=== PATIENT | male | born 1960 | race Caucasian/White ===

== ENCOUNTER 2023-11-20 11:20 | Day surgery (SDC) | payer BC ==
[2023-11-20 11:56] VITALS: RESP 16; TEMP 97.7
[2023-11-20] MEDS: LACTATED RINGERS 1,000 ML IV ONE (12:06)
[2023-11-20] MEDS ORDERED: PROPOFOL 10 MG/ML 20 ML VIAL IV ONE (12:10)
[2023-11-20] MEDS ORDERED: LIDOCAINE 1% (10MG/ML) FOR IV START INTRADERMA PRN (12:29)
[2023-11-20] MEDS ORDERED: LACTATED RINGERS 1,000 ML IV SCH (12:29)
[2023-11-20 12:48] LABS: Basophils # (A) 0.1 k/uL (0-0.2); Basophils % (A) 1 %; Eosinophils # (A) 0.3 k/uL (0-0.7); Eosinophils % (A) 3 %; HCT 48.1 % (39.0-53.0); HGB 16.1 gm/dL (13.0-17.5); Lymphocytes % (A) 12 %; MCH 30.8 pg (25.0-35.0); MCHC 33.5 g/dL (31.0-37.0); Mean Platelet Volume 8.1; Monocytes # (A) 0.4 k/uL (0-1.0); Monocytes % (A) 4 %; Neutrophils % (A) 80 %; Platelet Count 560 k/uL (150-450); RBC 5.23 m/uL (4.30-5.90); RDW 13.4 % (11.5-15.5); Reticulocyte % 1.4 % (0.5-2.0); WBC 8.7 k/uL (3.8-10.6)
[2023-11-20 12:57] VITALS: BP 123/85; PULSE 73
[2023-11-20 13:12] LABS: RBC Morphology Normal
--- NOTE | 2023-11-20 19:07 | OP ---
OPERATIVE REPORT DATE OF SERVICE : 11/20/2023 PROCEDURE: Bone marrow aspirate and biopsy. DESCRIPTION OF PROCEDURE: After obtaining consent from the patient, the procedure was performed in the endoscopy suite under general anesthesia performed by anesthesia team. The patient was put in the left lateral decubitus position. The right posterior iliac crest was localized. Skin was prepped with ChloraPrep. All sterile procedures were followed. 2 mL of 2% xylocaine was used for local anesthetic. Jamshidi needle was inserted, about 15 mL of aspirate and 1.5 cm core biopsy was obtained without difficulties. Pressure applied afterwards. There was negligible blood loss. Patient tolerated the procedure very well without any immediate complications. MMODL / IJN: [id number] /
== END 2023-11-20 13:05 | disposition home or self-care (01) ==
LOC: OR 11:20
PROVIDERS: ATTEND Internal Medicine Hematology & Oncology
DX: D72.829 Elevated white blood cell count, unspecified
CPT/HCPCS: 38222; 85025; 85045